=== PATIENT | female | born 1950 | race Caucasian/White ===

== ENCOUNTER 2016-06-30 08:46 | Day surgery (SDC) | payer MEDICARE, OTHER ==
[~2016-06-30] VITALS: Ht 172.7 cm; Wt 131.8 kg
[~2016-06-30 08:46] MED LIST: CALC600T12 PO; HYDR-3090 PO; HYDR25TA4 PO; LISI-571 PO; Sodium Chloride LOK Flush 10 mL Syringe IV PRN; WARF1TAB6 PO; fentaNYL-PF 50 mCg/mL 2 mL Inj IVPUSH PRN
[2016-06-30 09:04] VITALS: BP 146/72; PULSE 59; RESP 16; O2SAT 100
[2016-06-30] MEDS: 0.9% Sodium Chloride 1,000 ML IV SCH ×2 (09:39→10:14)
[2016-06-30 10:26] VITALS: BP 118/62; PULSE 53; RESP 12; O2SAT 99
[2016-06-30 10:36] VITALS: BP 129/61; PULSE 50; RESP 12; O2SAT 100
[2016-06-30 10:46] VITALS: BP 126/67; PULSE 55; RESP 14; O2SAT 100
[2016-06-30 10:56] VITALS: BP 121/60; PULSE 50; RESP 14; O2SAT 90
[2016-06-30 11:06] VITALS: BP 123/59; PULSE 52; RESP 14; O2SAT 98
--- NOTE | 2016-06-30 11:24 | ENDO ---
[address] [address] ENDOSCOPY PROCEDURE PATIENT: ROYER CINTRON : 1950 MR#: [id number] ADMIT: 06/30/2016 JOB ID: [id number] DATE: 06/30/2016 PRIMARY PROVIDER: CYNTHIA Quintero PROCEDURE: Colonoscopy. INDICATIONS: A 66-year-old female who has had a change in bowel habit with increased tendency towards constipation. EQUIPMENT: PCF H 180 AL. SEDATION: 1. 5 mg Versed. 2. 125 mcg fentanyl. COMPLICATIONS: None identified. BOWEL PREPARATION: Fair, adequate examination. PROCEDURAL INFORMATION: After the risks and benefits were explained, written and verbal informed consent was obtained. The patient was brought into the endoscopy suite and placed into the left lateral decubitus position. Sedation was achieved using the above-stated medications with the addition of oxygen via nasal cannula. A digital rectal examination was accomplished and minimal internal hemorrhoids noted. The scope was introduced into the rectum and advanced under direct visualization to the level of the cecum, as identified by the appendiceal orifice and ileocecal valve. The scope was slowly withdrawn to carefully examine the mucosa for any defects or lesions. Retroflexed views were avoided in the rectum. Multiple direct views were made through the dentate line for exclusion of pathology. The colon was decompressed. The scope removed from the patient who tolerated the procedure well. FINDINGS: No significant polyps, mass lesions, or inflammatory features identified throughout. The patient had a fairly lengthy and somewhat redundant colon. It was a little challenging to finally arrive in cecum from the vantage point of the mid ascending. ENDOSCOPIC DIAGNOSES: Visually unremarkable colonoscopy to cecum. RECOMMENDATIONS: Repeat colonoscopy in 10 years' time, sooner should symptoms warrant. I would recommend simply introducing 2 tablespoons of ground flaxseed fiber mixed with 8 ounces of water or juice daily to improve upon stool consistency and regularity.
== END 2016-06-30 23:59 | disposition home or self-care (01) ==
LOC: END 08:46
PROVIDERS: ATTEND Internal Medicine Gastroenterology
DX: R19.4 Change in bowel habit (principal); K59.00 Constipation, unspecified; Z86.711 Personal history of pulmonary embolism; Z79.01 Long term (current) use of anticoagulants
CPT/HCPCS: 45378; 99153; G0500; J2250; J3010; J7030